=== PATIENT | male | born 1980 | race African-American/Black ===

== ENCOUNTER 2021-06-18 21:25 | Inpatient (IN) | payer BC ==
[2021-06-18] MEDS ORDERED: ACETAMINOPHEN 500 MG TAB ONE (23:09)
[2021-06-19] LABS: SARS-COV-2 RT PCR POSITIVE (NEGATIVE)
[2021-06-19 00:20] LABS: Absolute Lymphocytes (CBC) 1.1 K/uL (0.7-4.9); Basophils % 1.8 % (0-1.3); Hematocrit 45.4 % (39.6-49.0); Lymphocytes % 18.2 % (15.3-44.8); MPV 7.8 fL (7.6-11.3); RBC Red Blood Cell Count 5.82 M/uL (4.33-5.43)
[2021-06-19 00:24] LABS: Protime INR 1.32
[2021-06-19 00:32] LABS: ALT/SGPT 31 U/L (12-78); AST/SGOT 27 U/L (15-37); Albumin 3.2 g/dL (3.4-5.0); Alkaline Phosphatase 58 U/L (45-117); BUN Blood Urea Nitrogen 8 mg/dL (7-18); Bicarbonate 27 mmol/L (21-32); Bilirubin Direct 0.2 mg/dL (0-0.2); Bilirubin Total 0.6 mg/dL (0.2-1.0); Creatine Phosphokinase 144 U/L (39-308); Glucose Level 126 mg/dL (74-106); Lipase 83 U/L (73-393); Magnesium 2.1 mg/dL (1.8-2.4); Potassium 3.5 mmol/L (3.5-5.1); Protein, Total 8.2 g/dL (6.4-8.2); Sodium Level 138 mmol/L (136-145); Troponin (Emerg Dept Use Only) < 0.02 ng/mL (0.0-0.045)
[2021-06-19 00:38] LABS: CKMB Creatine Kinase MB < 1.0 ng/mL (1.0-3.6); NT PRO-BNP < 5 pg/mL (<125)
--- NOTE | 2021-06-19 01:10 | ER ---
Nurse's Notes [facility] Name: Arpit Moffett Age: 41 yrs Sex: Male : 1980 Arrival Date: 06/18/2021 Time: 21:36 Bed 6 Private MD: Diagnosis: Pneumonia due to SARS-associated coronavirus;Hypoxemia Presentation: 06/18 22:34 Chief complaint: Patient states: Pt stated he hasn't been feeling well for the past wg week. States he was exposed to someone with Covid last week. States he has had increased resp distress, non productive cough, fever and hasn't been sleeping. Did take a Covid test last which was negative. [facility] stated when they arrived on scene pt was satting at 88% and came up to 93% on 2L NC. Pt states he also hasn't been eating or drinking. Pt denies, N/V, dizziness, Abd Pain, CP. Coronavirus screen: Vaccine status: Patient reports being unvaccinated. Client denies travel out of the [place] in the last 14 days. cough unrelated to allergies, fever, Client presents with at least one sign or symptom that may indicate coronavirus-19. Standard/surgical mask placed on the client. The client indicates previous COVID test results are pending. Date of collection: June 12, 2021. Ebola Screen: Patient negative for fever greater than or equal to 101.5 degrees Fahrenheit, and additional compatible Ebola Virus Disease symptoms Patient denies exposure to infectious person. Patient denies travel to an Ebola-affected area in the 21 days before illness onset. No symptoms or risks identified at this time. Initial Sepsis Screen: Does the patient meet any 2 criteria? RR > 20 per min. Temp <36.0*C (96.8*F)) or > 38.3*C (100.9*F). HR > 90 bpm. Yes Does the patient have a suspected source of infection? Yes: Other: Resp. Risk Assessment: Do you want to hurt yourself or someone else? Patient reports no desire to harm self or others. Onset of symptoms was June 14, 2021. Care prior to arrival: Medication(s) given: Robitussin. 22:34 Method Of Arrival: EMS: [facility] 22:34 Acuity: DALI 3 wg Triage Assessment: 22:40 General: Appears comfortable, well groomed, well developed, well nourished, Behavior is wg calm, cooperative, appropriate for age. Pain: Complains of pain in Chest/cough. EENT: Reports. Neuro: No deficits noted. Cardiovascular: No deficits noted. Respiratory: Reports shortness of breath cough that is air hunger pain with cough pain with movement Breath sounds are diminished Onset: The symptoms/episode began/occurred Since Wednesday, the patient has moderate shortness of breath. GI: No deficits noted. : No deficits noted. Derm: No deficits noted. Musculoskeletal: No deficits noted. Historical: - Allergies: 22:44 No Known Allergies; wg - Immunization history:: Adult Immunizations unknown. - Social history:: Smoking status: unknown. - Family history:: not pertinent. - Hospitalizations: : No recent hospitalization is reported. Screenin:48 Abuse screen: Denies threats or abuse. Nutritional screening: No deficits noted. ea Tuberculosis screening: No symptoms or risk factors identified. Fall Risk None identified. Assessment: 06/19 00:00 General: Appears uncomfortable, Behavior is appropriate for age. Pain: Denies pain. ea Neuro: Level of Consciousness is awake, alert, obeys commands, Oriented to person, place, time. Cardiovascular: Patient's skin is warm and dry. Respiratory: Airway is patent Respiratory effort is even, unlabored, Respiratory pattern is regular, symmetrical. Derm: Skin is pink, warm \T\ dry. 01:43 Respiratory: Airway. kc4 01:53 Reassessment: Patient and/or family updated on plan of care and expected duration. Pain ea level reassessed. Patient is alert, oriented x 3, equal unlabored respirations, skin warm/dry/pink. Report called to receiving nurse, pt admitted to fourth floor. Pt left ED via wheelchair with O2 pt tolerating well. Vital Signs: 06/18 22:34 BP 127 / 92; Pulse 98; Resp 24; Temp 101.4; Pulse Ox 95% 3 lpm ; Weight 114.76 kg; wg Height 5 ft. 11 in. (180.34 cm); Pain 7/10; 06/19 01:42 BP 128 / 79; Pulse 88; Resp 18; Temp 99.0; Pulse Ox 94% 3 lpm ; Pain 0/10; kc4 06/18 22:34 Body Mass Index 35.29 (114.76 kg, 180.34 cm) ED Course: 06/18 21:36 Patient arrived in ED. bb 22:40 Triage completed. domitila 22:40 Arm band placed on right wrist. EKG completed in triage. Results shown to MD. wg 23:34 Ponce Haines MD is Attending Physician. rn 23:44 XRAY Chest Pa And Lat (2 Views) In Process Unspecified. EDMS 23:47 Le Lowe is Primary Nurse. kcArsen 06/19 00:03 Patient has correct armband on for positive identification. Bed in low position. ea 00:03 Inserted saline lock: 20 gauge in right antecubital area, using aseptic technique. ea Blood collected. 01:09 Leonel Blair MD is Hospitalizing Provider. rn 01:25 CORONAVIRUS Sent. kcArsen 01:46 No provider procedures requiring assistance completed. Patient admitted, IV remains in ea place. Administered Medications: 06/18 22:49 Drug: Tylenol 1000 mg Route: PO; wg 06/19 01:53 Follow up: Response: No adverse reaction ea Outcome: 01:09 Decision to Hospitalize by Provider. rn 01:48 Condition: stable ea 01:48 Instructed on the need for admit, Demonstrated understanding of instructions. 01:54 Patient left the ED. ea 01:54 Admitted to Med/surg via stretcher. ea Signatures: Dispatcher [employer] EDMS Katia He RN RN bb Nieto, Roman, MD MD rn Antunez, Elena, RN RN ea Gamba, Liam, RN wg Chuman, Kourtney kc4 Corrections: (The following items were deleted from the chart) 06/18 22:52 22:34 BP 127 / 92; Pulse 98bpm; Resp 24bpm; Pulse Ox 95% 3 lpm; Temp 100.4F; 114.76 kg; wg Height 5 ft. 11 in.; BMI: 35.2; Pain 7/10; wg
--- NOTE | 2021-06-19 01:10 | EDPHYS ---
Physician Documentation [facility] Name: Arpit Moffett Age: 41 yrs Sex: Male : 1980 Arrival Date: 06/18/2021 Time: 21:36 Bed 6 Private MD: ED Physician Ponce Haines HPI: 06/19 00:27 This 41 yrs old Black Male presents to ER via EMS with complaints of Shortness of rn breath. 00:27 The patient has shortness of breath at rest, with light activity. Onset: The rn symptoms/episode began/occurred 1 week(s) ago. Duration: The symptoms are intermittent. The patient's shortness of breath is aggravated by exertion, light activity, is alleviated by nothing. Associated signs and symptoms: Pertinent positives: non-productive cough, fever, Pertinent negatives: hemoptysis, loss of consciousness. Severity of symptoms: At their worst the symptoms were moderate in the emergency department the symptoms are unchanged. The patient has not experienced similar symptoms in the past. The patient has not recently seen a physician. Patient reports shortness of breath that has gotten worse over the last few days, cough started 1 week ago. Exposed to somebody with Covid. Reports congestion and generalized weakness and fatigue. Has not lost taste or smell. No chronic medical problems other than diabetes which he takes Metformin. Reports fever and chills.. Historical: - Allergies: 06/18 22:44 No Known Allergies; wg - Immunization history:: Adult Immunizations unknown. - Social history:: Smoking status: unknown. - Family history:: not pertinent. - Hospitalizations: : No recent hospitalization is reported. ROS: 06/19 00:27 Constitutional: Positive for fever and chills Eyes: Negative for injury, pain, redness, rn and discharge, ENT: Negative for injury, pain, and discharge, Neck: Negative for injury, pain, and swelling, Cardiovascular: Negative for chest pain, palpitations, and edema, Respiratory: Positive for cough and shortness of breath Abdomen/GI: Negative for abdominal pain, nausea, vomiting Back: Negative for injury and pain, : Negative for injury, bleeding, discharge, and swelling, MS/Extremity: Negative for injury and deformity, Skin: Negative for injury, rash, and discoloration, Neuro: Negative for numbness, tingling, and seizure. Exam: 00:27 Constitutional: This is a well developed, well nourished patient who is awake, alert, rn mild tachypnea Head/Face: Normocephalic, atraumatic. Eyes: Pupils equal round and reactive to light, extra-ocular motions intact. Lids and lashes normal. Conjunctiva and sclera are non-icteric and not injected. Cornea within normal limits. Periorbital areas with no swelling, redness, or edema. ENT: No stridor Cardiovascular: Tachycardic, regular. No pulse deficits. Respiratory: Mild tachypnea, no retractions Abdomen/GI: Soft, nontender Skin: Warm, dry MS/ Extremity: Pulses equal, no cyanosis. Neuro: Awake and alert, GCS 15 Vital Signs: 06/18 22:34 BP 127 / 92; Pulse 98; Resp 24; Temp 101.4; Pulse Ox 95% 3 lpm ; Weight 114.76 kg; wg Height 5 ft. 11 in. (180.34 cm); Pain 7/10; 06/19 01:42 BP 128 / 79; Pulse 88; Resp 18; Temp 99.0; Pulse Ox 94% 3 lpm ; Pain 0/10; kc4 06/18 22:34 Body Mass Index 35.29 (114.76 kg, 180.34 cm) wg MDM: 06/18 23:34 Patient medically screened. rn 06/19 01:05 Differential diagnosis: Bronchitis Myocardial Infarction pneumonia, Pneumothorax rn pulmonary edema, reactive airway disease, Sepsis. Antibiotic administration: Not indicated. Data reviewed: vital signs, nurses notes, lab test result(s), EKG, radiologic studies, plain films, and as a result, I will admit patient. Data interpreted: patient monitor: rate is 98 beats/min, rhythm is normal sinus rhythm, regular, with no ectopy, Interpretation: normal rate, normal rhythm, Pulse oximetry: on room air is 88 %. Interpretation: hypoxia. Plan: O2 by NC applied. Test interpretation: by ED physician or midlevel provider: ECG, plain radiologic studies, X-ray with bilateral infiltrates consistent with Covid pneumonia. Counseling: I had a detailed discussion with the patient and/or guardian regarding: the historical points, exam findings, and any diagnostic results supporting the discharge/admit diagnosis, lab results, radiology results, the need for outpatient follow up, to return to the emergency department if symptoms worsen or persist or if there are any questions or concerns that arise at home. 01:08 Response to treatment: the patient's symptoms have mildly improved after treatment. furniture delivery driver orders: after a detailed discussion of the patient's condition and case, the admit orders are written by me. ED course: Patient Covid positive, Covid pneumonia on x-ray, hypoxic, will admit to hospitalist service for further care.. 06/18 22:51 Order name: BMP 06/18 22:51 Order name: Blood Culture Adult (2) 06/18 22:51 Order name: CBC with Diff 06/18 22:51 Order name: CPK; Complete Time: 01: 06/18 22:51 Order name: Ckmb; Complete Time: : 06/18 22:51 Order name: D-Dimer; Complete Time: 01: 06/18 22:51 Order name: Hepatic Function; Complete Time: 01: 06/18 22:51 Order name: Lipase; Complete Time: 01: 06/18 22:51 Order name: Magnesium; Complete Time: 01: 06/18 22:51 Order name: NT PRO-BNP; Complete Time: 01: 06/18 22:51 Order name: PT-INR; Complete Time: : 06/18 22:51 Order name: Ptt, Activated; Complete Time: : 06/18 22:51 Order name: Troponin (emerg Dept Use Only); Complete Time: 01:04 06/18 22:51 Order name: XRAY Chest Pa And Lat (2 Views) 06/18 22:51 Order name: EKG; Complete Time: 22:52 06/18 22:51 Order name: Cardiac monitoring; Complete Time: 00:02 06/18 22:51 Order name: EKG - Nurse/Tech; Complete Time: : 06/18 22:51 Order name: IV Saline Lock; Complete Time: 00:02 06/18 22:51 Order name: Labs collected and sent; Complete Time: 00:02 06/18 22:51 Order name: O2 Per Protocol; Complete Time: 00:02 06/18 22:51 Order name: O2 Sat Monitoring; Complete Time: 00:02 06/18 22:51 Order name: CORONAVIRUS EDMS 06/18 22:51 Order name: Basic Metabolic Panel; Complete Time: 01:04 EDMS 06/18 22:51 Order name: Blood Culture EDSC 06/18 22:51 Order name: CBC with Automated Diff; Complete Time: 01:04 EDMS 06/19 00:01 Order name: COVID-19/FLU A+B; Complete Time: 01:04 EDMS 06/19 01:13 Order name: CONS Physician Consult EDSC 06/19 01:14 Order name: Chest For Pe Angio EDMS Administered Medications: 06/18 22:49 Drug: Tylenol 1000 mg Route: PO; wg 06/19 01:53 Follow up: Response: No adverse reaction ea Disposition Summary: 06/19/21 01:09 Hospitalization Ordered Hospitalization Status: Inpatient Admission rn Provider: Leonel Blair rn Location: Telemetry/MedSurg (Inpatient) rn Condition: Stable rn Problem: new rn Symptoms: have improved rn Bed/Room Type: Standard rn Room Assignment: 419(06/19/21 01:36) tl1 Diagnosis - Pneumonia due to SARS-associated coronavirus rn - Hypoxemia rn Forms: - Medication Reconciliation Form rn - SBAR form rn Signatures: Dispatcher [employer] [facility] Ponce Haines MD MD rn Lasagna, Tonya RN RN tl1 Kellee Brown RN RN ea Gamba, Liam, RN wg Corrections: (The following items were deleted from the chart) 01:36 01:09 rn tl1
--- NOTE | 2021-06-19 01:53 | P.HP ---
Certification for Inpatient Patient admitted to: Inpatient With expected LOS: <2 Midnights Patient will require the following post-hospital care: None Practitioner: I am a practitioner with admitting privileges, knowledge of patient current condition, hospital course, and medical plan of care. Services: Services provided to patient in accordance with Admission requirements found in Title 42 Section 412.3 of the Code of Federal Regulations Patient History Date of Service: 06/19/21 Reason for admission: covid pneumonia History of Present Illness: Mr. Moffett is a 41 yo M with DM who presents with SOB and cough since Wednesday, and COVID+ diagnosis today. He was found to be 88% on RA, stable on 2L NC. He reports fever, anorexia, malaise, wheezing, headache and diarrhea. Denies nausea, vomiting, pleuritic pain. Fluid intake has been good. Ddimer 1096. CTPE pending. - Past Medical/Surgical History Diabetic: Yes -: DM Past Surgical History: Patient denies surgical history - Family History Father -: Diabetes - Social History Smoking Status: Never smoker Alcohol use: No CD- Drugs: No Caffeine use: Yes Place of Residence: Home Review of Systems 10-point ROS is otherwise unremarkable General: Fever, Chills, Sweats, Malaise Respiratory: Cough, Shortness of Breath, Wheezing Gastrointestinal: Diarrhea Physical Examination - Physical Exam General: Alert, In no apparent distress HEENT: Atraumatic, PERRLA, Mucous membr. moist/pink, EOMI, Sclerae nonicteric Neck: Supple, 2+ carotid pulse no bruit, No LAD, Without JVD or thyroid abnormality Respiratory: Normal air movement, Rhonchi/gurgles Cardiovascular: Regular rate/rhythm, Normal S1 S2 Gastrointestinal: Normal bowel sounds, No tenderness Musculoskeletal: No tenderness Integumentary: No rashes Neurological: Normal gait, Normal speech, Normal strength at 5/5 x4 extr, Normal tone, Normal affect Lymphatics: No axilla or inguinal lymphadenopathy - Studies Laboratory Data (last 24 hrs) 06/18/21 23:58: PT 15.2 H, INR 1.32, APTT 31.2 06/18/21 23:58: WBC 6.30, Hgb 14.5, Hct 45.4, Plt Count 266 06/18/21 23:58: Sodium 138, Potassium 3.5, BUN 8, Creatinine 1.02, Glucose 126 H, Magnesium 2.1, Total Bilirubin 0.6, AST 27, ALT 31, Alkaline Phosphatase 58, Lipase 83 Assessment and Plan - Problems (Diagnosis) (1) Pneumonia due to COVID-19 virus Current Visit: Yes Status: Acute (2) Diabetes Current Visit: Yes Status: Chronic Qualifiers: Diabetes mellitus type: type 2 Diabetes mellitus bed bug exterminator insulin use: without bed bug exterminator use Diabetes mellitus complication status: without complication Qualified Code(s): E11.9 - Type 2 diabetes mellitus without complications - Plan pulm and respiratory therapy consulted follow up CT scan continue IV steroids, covid supplements, ivermectin daily CRP, ferritin, procal sliding scale insulin and accuchecks DVT ppx Discharge Plan: Home Plan to discharge in: 48 Hours - Advance Directives Does patient have a Living Will: No Does patient have a Durable POA for Healthcare: No - Code Status/Comfort Care Code Status Assessed: Yes (full code) Critical Care: No Time Spent Managing Pts Care (In Minutes): 70
[2021-06-19] MEDS ORDERED: MORPHINE 2 MG/ML SYR IV PRN (02:44)
[2021-06-19] MEDS ORDERED: ACETAMINOPHEN 500 MG TAB PO PRN (02:44)
[2021-06-19] MEDS ORDERED: ONDANSETRON 4 MG/2 ML VIAL IV PRN (02:44)
[2021-06-19 03:01] VITALS: BMI 35.2
[2021-06-19] MEDS: METHYLPREDNISOLONE 125 MG INJ IV SCH ×3 (03:21→19:31)
[2021-06-19] MEDS: MELATONIN 5 MG TABLET PO PRN ×2 (03:22→19:31)
[2021-06-19] MEDS: BENZONATATE 100 MG CAP PO PRN ×3 (03:22→19:30)
[2021-06-19] MEDS: INSULIN -REGULAR HUMAN 50 UNIT/0.5 ML ML SQ SCH ×4 (07:30→19:29)
--- NOTE | 2021-06-19 07:45 | RAD REPORT ---
EXAM DESCRIPTION: RAD - Chest Pa And Lat (2 Views) - 06/18/2021 11:44 pm CLINICAL HISTORY: Fever;Cough;Dyspnea COMPARISON: None TECHNIQUE: Frontal and lateral views of the chest were obtained. FINDINGS: The lungs are underinflated. Airspace opacities are present primarily in a peripheral dist ribution. Pattern is nonspecific but commonly seen in COVID-19 pneumonia. That would be the primary d ifferential diagnosis in the current clinical environment. Non COVID viral pneumonia and organizing p neumonia can give this pattern. Heart size is normal and central vasculature is within normal limits. No pleural effusion or pneu mothorax seen. No acute bony finding noted. No aortic abnormality. IMPRESSION: Bilateral peripheral airspace opacification. COVID testing findings are not detailed in history. In the current clinical environment, this lung pa ttern is most likely COVID-19 pneumonia.
[2021-06-19] MEDS: ASCORBIC ACID 500 MG TABLET PO SCH ×4 (08:37→19:31)
[2021-06-19] MEDS: ASPIRIN EC 81 MG TAB PO SCH (08:37)
[2021-06-19] MEDS: ZINC SULFATE 220 MG CAP PO SCH (08:37)
[2021-06-19] MEDS: IVERMECTIN 3 MG TABLET PO SCH (08:38)
[2021-06-19] MEDS: FAMOTIDINE 20 MG TAB PO SCH ×2 (08:38→19:30)
[2021-06-19] MEDS: THIAMINE HCL 100 MG TABLET PO SCH (08:38)
[2021-06-19] MEDS: VITAMIN D 1000 UNIT TAB PO SCH (08:38)
[2021-06-19] MEDS ORDERED: POTASSIUM CL SA 10 MEQ TAB PO ONE (09:00)
--- NOTE | 2021-06-19 12:22 | RAD REPORT ---
EXAM DESCRIPTION: CT - Chest For Pe Angio - 06/19/2021 2:12 am CLINICAL HISTORY: The patient is 41 years old and is Male; covid pneumonia TECHNIQUE: Axial computed tomographic angiography images of the chest with intravenous contrast. S agittal and coronal reformatted images were created and reviewed. This CT exam was performed using one or more of the following dose reduction techniques: automated exposure control, adjustment of t he mA and/or kV according to patient size, and/or use of iterative reconstruction technique. MIP reconstructed images were created and reviewed. COMPARISON: No relevant prior studies available. FINDINGS: PULMONARY ARTERIES: There are no obvious filling defects identified within the pulmonary arteries to suggest pulmonary embolism. AORTA: No acute findings. No thoracic aortic aneurysm. LUNGS: Extensive scattered groundglass opacities are present throughout the lungs. PLEURAL SPACE: Unremarkable. No significant effusion. No pneumothorax. HEART: Unremarkable. No cardiomegaly. No significant pericardial effusion. No evidence of RV dysfunction. BONES/JOINTS: No acute fracture. No dislocation. SOFT TISSUES: Unremarkable. LYMPH NODES: Unremarkable. No enlarged lymph nodes. LIVER: The liver is enlarged and diffusely fatty. IMPRESSION: 1. Extensive groundglass infiltrates. Commonly reported imaging features of (COVID-1 9 or viral) pneumonia are present. Other processes such as influenza pneumonia and organizing pneumon ia, as can be seen with drug toxicity and connective tissue disease, can cause a similar imaging meme alma. [id number] 2. No evidence of pulmonary embolism. Electronically signed by: Sheeba Cerna MD 06/19/2021 2:06 AM CDT Due to temporary technical issues with the PACS/Fluency reporting system, reports are being signed by the in house radiologist without review as a courtesy to ensure prompt reporting. The interpreting r adiologist is fully responsible for the content of the report.
[2021-06-19] MEDS ORDERED: RIVAROXABAN 10 MG TABLET PO SCH (17:00)
--- NOTE | 2021-06-19 17:16 | P.PN ---
Date of Service: 06/19/21 Patient seen and examined. He is currently tolerating 2 L oxygen by nasal cannula. Continue IV steroid. Vitamins and zinc supplementation Check CRP, ferritin and pro calcitonin. Pharmacist to evaluate for Remdesivir therapy.
[2021-06-19] MEDS ORDERED: REMDESIVIR (EUA) 200 MG in NA CHLORIDE 0.9% 250 ML IV ONE (19:00)
[2021-06-20 05:29] LABS: Basophils % 0.5 % (0-1.3); Hematocrit 45.5 % (39.6-49.0); Lymphocytes % 10.1 % (15.3-44.8); MPV 7.9 fL (7.6-11.3); RBC Red Blood Cell Count 5.81 M/uL (4.33-5.43)
[2021-06-20 05:57] LABS: ALT/SGPT 37 U/L (12-78); AST/SGOT 22 U/L (15-37); Albumin 2.9 g/dL (3.4-5.0); Alkaline Phosphatase 62 U/L (45-117); BUN Blood Urea Nitrogen 11 mg/dL (7-18); Bicarbonate 26 mmol/L (21-32); Bilirubin Direct 0.1 mg/dL (0-0.2); Bilirubin Total 0.5 mg/dL (0.2-1.0); Ferritin 657.3 ng/mL (26-388); Glucose Level 176 mg/dL (74-106); HDL Cholesterol 34 mg/dL (40-60); LDL Cholesterol, Calculated 134 (<130); Magnesium 2.2 mg/dL (1.8-2.4); Phosphorus 2.6 mg/dL (2.5-4.9); Potassium 3.9 mmol/L (3.5-5.1); Protein, Total 7.8 g/dL (6.4-8.2); Sodium Level 138 mmol/L (136-145)
[2021-06-20] MEDS: INSULIN -REGULAR HUMAN 50 UNIT/0.5 ML ML SQ SCH ×4 (07:30→20:41)
[2021-06-20] MEDS: VITAMIN D 1000 UNIT TAB PO SCH (08:38)
[2021-06-20] MEDS: FAMOTIDINE 20 MG TAB PO SCH ×2 (08:38→19:26)
[2021-06-20] MEDS: ASCORBIC ACID 500 MG TABLET PO SCH ×4 (08:38→19:27)
[2021-06-20] MEDS: THIAMINE HCL 100 MG TABLET PO SCH (08:38)
[2021-06-20] MEDS: ASPIRIN EC 81 MG TAB PO SCH (08:38)
[2021-06-20] MEDS: ZINC SULFATE 220 MG CAP PO SCH (08:38)
[2021-06-20] MEDS: METHYLPREDNISOLONE 125 MG INJ IV SCH ×2 (08:39→19:26)
[2021-06-20] MEDS ORDERED: POTASSIUM CL SA 10 MEQ TAB PO ONE (09:00)
[2021-06-20] MEDS: REMDESIVIR (EUA) 100 MG in NA CHLORIDE 0.9% 250 ML IV SCH (09:04)
[2021-06-20] MEDS: BENZONATATE 100 MG CAP PO PRN (12:20)
--- NOTE | 2021-06-20 12:55 | P.CNS ---
Date of Consult: 06/20/21 Reason for Consult: Coronavirus pneumonia Chief Complaint: covid pneumonia History of Present Illness: Patient is 41 years of age with diabetes admitted with back coronavirus pneumonia ported fatigue wheezing shortness of breath nausea vomiting currently stable Allergies No Known Drug Allergies Allergy (Verified 06/19/21 02:43) Rash Home Medications: Metformin ER [Glucophage ER*] 500 mg PO DAILY 06/19/21 - Past Medical/Surgical History Diabetic: Yes -: DM - Family History Father Medical History: Diabetes - Social History Smoking Status: Unknown if ever smoked Alcohol use: No CD- Drugs: No Caffeine use: Yes Place of Residence: Home Review of Systems General: Weakness Respiratory: Shortness of Breath Physical Examination Temp Pulse Resp BP Pulse Ox 97.8 F 88 22 H 133/87 89 L 06/20/21 08:00 06/20/21 08:00 06/20/21 08:00 06/20/21 08:00 06/20/21 08:00 General: Alert, Oriented x2, Cooperative - Problems (1) Pneumonia due to COVID-19 virus Current Visit: Yes Status: Acute Plan: Patient is 41 years of age admitted with coronavirus pneumonia he is only on 3 L of nasal cannula oxygen if he gets worse we will start him on Barcitinib currently he is on remdesivir and steroids continues to remain stable possible discharge after completion of remdesivir dose
[2021-06-20] MEDS ORDERED: HYDROCODONE/CHLORPHEN 5 ML/OSYR PO PRN (16:58)
--- NOTE | 2021-06-20 16:58 | P.PN ---
Subjective Date of Service: 06/20/21 Chief Complaint: covid pneumonia Patient's oxygen saturation is getting worse by the ED. He reports intermittent cough, especially with deep breathing. Physical Examination - Vital Signs Temperature: 97.3 F Blood Pressure: 141/77 Pulse: 76 Respirations: 20 Pulse Ox (%): 89 - Physical Exam General: Alert, In no apparent distress, Oriented x3 Neck: JVD distended Respiratory: Other (Nonlabored breathing) Cardiovascular: Regular rate/rhythm, Normal S1 S2 Gastrointestinal: Soft and benign, Non-distended Musculoskeletal: No swelling Integumentary: No rashes Neurological: Normal strength at 5/5 x4 extr Assessment And Plan - Current Problems (Diagnosis) (1) Acute respiratory failure with hypoxia Current Visit: Yes Status: Acute (2) Pneumonia due to COVID-19 virus Current Visit: Yes Status: Acute (3) Diabetes Current Visit: Yes Status: Chronic Qualifiers: Diabetes mellitus type: type 2 Diabetes mellitus snf insulin use: without snf use Diabetes mellitus complication status: without complication Qualified Code(s): E11.9 - Type 2 diabetes mellitus without complications - Plan Continue IV steroid. Vitamins and zinc supplementation. Titrate oxygen Antitussives as needed. Watch for steroid induced hyperglycemia. Manage blood sugar with insulin sliding scale.
[2021-06-20] MEDS: RIVAROXABAN 20 MG TABLET PO SCH (17:20)
[2021-06-20] MEDS: MELATONIN 5 MG TABLET PO PRN (19:27)
[2021-06-21 05:45] LABS: Absolute Lymphocytes (CBC) 1.2 K/uL (0.7-4.9); Basophils % 0.4 % (0-1.3); Hematocrit 43.7 % (39.6-49.0); Lymphocytes % 7.9 % (15.3-44.8); MPV 7.8 fL (7.6-11.3); RBC Red Blood Cell Count 5.57 M/uL (4.33-5.43)
[2021-06-21 06:17] LABS: ALT/SGPT 56 U/L (12-78); AST/SGOT 30 U/L (15-37); Albumin 2.8 g/dL (3.4-5.0); Alkaline Phosphatase 76 U/L (45-117); BUN Blood Urea Nitrogen 16 mg/dL (7-18); Bicarbonate 25 mmol/L (21-32); Bilirubin Direct 0.1 mg/dL (0-0.2); Bilirubin Total 0.3 mg/dL (0.2-1.0); Glucose Level 262 mg/dL (74-106); Potassium 4.2 mmol/L (3.5-5.1); Protein, Total 7.3 g/dL (6.4-8.2); Sodium Level 136 mmol/L (136-145)
[2021-06-21 07:07] LABS: Blood Morphology Comment NOT SEEN (NOT SEEN); Platelet Estimate ADEQ; White Blood Cell Scan OK (OK)
[2021-06-21] MEDS: REMDESIVIR (EUA) 100 MG in NA CHLORIDE 0.9% 250 ML IV SCH (09:56)
[2021-06-21] MEDS: IVERMECTIN 3 MG TABLET PO SCH (09:56)
[2021-06-21] MEDS: FAMOTIDINE 20 MG TAB PO SCH (09:57)
[2021-06-21] MEDS: ASPIRIN EC 81 MG TAB PO SCH (09:57)
[2021-06-21] MEDS: VITAMIN D 1000 UNIT TAB PO SCH (09:57)
[2021-06-21] MEDS: ZINC SULFATE 220 MG CAP PO SCH (09:57)
[2021-06-21] MEDS: METHYLPREDNISOLONE 125 MG INJ IV SCH (09:57)
[2021-06-21] MEDS: THIAMINE HCL 100 MG TABLET PO SCH (09:57)
[2021-06-21] MEDS: ASCORBIC ACID 500 MG TABLET PO SCH ×3 (09:57→16:48)
[2021-06-21] MEDS: INSULIN -REGULAR HUMAN 50 UNIT/0.5 ML ML SQ SCH ×3 (09:58→16:49)
[2021-06-21 12:15] VITALS: O2SAT 92
[2021-06-21 12:16] VITALS: TEMP 97.6
[2021-06-21 16:13] VITALS: BP 129/74
--- NOTE | 2021-06-21 16:40 | P.DS ---
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 He tested positive for COVID in the ED. He was found to be 88% on RA, put on 2L NC. Her reported pleuritic pain. Ddimer 1096. CTPE no PE but extensive bilateral infiltrates. Patient hospitalized for further management. Hospital Course: Patient admitted to the medical floor, started on IV Solu-Medrol, put on vitamin-D and zinc supplementation. He was stable on 2 L of oxygen by nasal cannula. Patient also treated with Remdesivir. Seen by pulmonary-Dr. Gale who assisted with management. Patient has been stable on 2 L oxygen by nasal cannula and deemed stable for discharge. He is informed to return to the ED should he require more oxygen or feel more short of breath. Vital Signs/Physical Exam: Temp Pulse Resp BP Pulse Ox 97.6 F 79 18 129/74 92 06/21/21 16:00 06/21/21 16:00 06/21/21 16:00 06/21/21 16:00 06/21/21 16:00 General: Alert, In no apparent distress, Oriented x3 HEENT: Mucous membr. moist/pink Neck: JVD not distended Respiratory: Other (Nonlabored breathing) Cardiovascular: No edema, Regular rate/rhythm, Normal S1 S2 Gastrointestinal: Soft and benign, Non-distended Musculoskeletal: No swelling Integumentary: No rashes Neurological: Normal strength at 5/5 x4 extr Laboratory Data at Discharge: WBC 15.30 K/uL (4.3-10.9) H D 06/21/21 04:44 Hgb 14.0 g/dL (13.6-17.9) 06/21/21 04:44 Hct 43.7 % (39.6-49.0) 06/21/21 04:44 Plt Count 402 K/uL (152-406) 06/21/21 04:44 PT 15.2 SECONDS (9.5-12.5) H 06/18/21 23:58 INR 1.32 06/18/21 23:58 APTT 31.2 SECONDS (24.3-36.9) 06/18/21 23:58 Sodium 136 mmol/L (136-145) 06/21/21 04:44 Potassium 4.2 mmol/L (3.5-5.1) 06/21/21 04:44 BUN 16 mg/dL (7-18) 06/21/21 04:44 Creatinine 0.87 mg/dL (0.55-1.3) 06/21/21 04:44 Glucose 262 mg/dL (74-106) H 06/21/21 04:44 Phosphorus 2.6 mg/dL (2.5-4.9) 06/20/21 04:53 Magnesium 2.2 mg/dL (1.8-2.4) 06/20/21 04:53 Total Bilirubin 0.3 mg/dL (0.2-1.0) 06/21/21 04:44 AST 30 U/L (15-37) 06/21/21 04:44 ALT 56 U/L (12-78) 06/21/21 04:44 Alkaline Phosphatase 76 U/L (45-117) 06/21/21 04:44 Triglycerides 123 mg/dL (<150) 06/20/21 04:53 Cholesterol 193 mg/dL (<200) 06/20/21 04:53 HDL Cholesterol 34 mg/dL (40-60) L 06/20/21 04:53 Cholesterol/HDL Ratio 5.68 06/20/21 04:53 Lipase 83 U/L (73-393) 06/18/21 23:58 Home Medications: Metformin ER [Glucophage ER*] 500 mg PO DAILY 06/19/21 Ascorbic Acid [Vitamin C*] 500 mg PO QID #120 tablet 06/21/21 Aspirin [Aspirin EC 81 MG] 162 mg PO DAILY #60 tablet. 06/21/21 Benzonatate [Tessalon Perle*] 100 mg PO TID PRN #30 cap 09/11/21 Cholecalciferol (Vitamin D3) [Vitamin D 1000 Iu Tab*] 4,000 unit PO DAILY #120 tab 06/21/21 Famotidine [Pepcid*] 20 mg PO BID #60 tab 06/21/21 Hydrocodone/Chlorphen Polis [Tussionex Oral Susp*] 5 ml PO BID PRN #115 ml 06/21/21 Thiamine HCl [Vitamin B-1*] 200 mg PO DAILY #30 tablet 06/21/21 Zinc Sulfate [Zinc Sulfate*] 220 mg PO DAILY #30 cap 06/21/21 glipiZIDE [Glucotrol Xl] 2.5 mg PO DAILY #30 tab.er.24 06/21/21 predniSONE [Deltasone] 20 mg PO BID #21 tab 06/21/21 New Medications: Aspirin [Aspirin EC 81 MG] 162 mg PO DAILY #60 tablet. glipiZIDE [Glucotrol Xl] 2.5 mg PO DAILY #30 tab.er.24 Famotidine [Pepcid*] 20 mg PO BID #60 tab predniSONE [Deltasone] 20 mg PO BID #21 tab Benzonatate [Tessalon Perle*] 100 mg PO TID PRN #30 cap PRN Reason: Cough Hydrocodone/Chlorphen Polis [Tussionex Oral Susp*] 5 ml PO BID PRN #115 ml PRN Reason: Cough Thiamine HCl [Vitamin B-1*] 200 mg PO DAILY #30 tablet Ascorbic Acid [Vitamin C*] 500 mg PO QID #120 tablet Cholecalciferol (Vitamin D3) [Vitamin D 1000 Iu Tab*] 4,000 unit PO DAILY #120 tab Zinc Sulfate [Zinc Sulfate*] 220 mg PO DAILY #30 cap Physician Discharge Instructions: Please return to the emergency department if you feel more short of breath and have to increase your oxygen. Diet: ADA Activity: Ad miryam Followup: NONE,NONE [Primary Care Provider] - Time spent managing pt's care (in minutes): 38
[2021-06-21] MEDS: RIVAROXABAN 20 MG TABLET PO SCH (16:48)
--- NOTE | 2021-06-21 17:15 | P.PN ---
Subjective Date of Service: 06/21/21 Chief Complaint: covid pneumonia Patient is stable on 2 L of oxygen by nasal cannula. He states he feels better today. . Physical Examination - Vital Signs Temperature: 97.6 F Blood Pressure: 129/74 Pulse: 79 Respirations: 18 Pulse Ox (%): 92 - Physical Exam General: Alert, In no apparent distress, Oriented x3 HEENT: Mucous membr. 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 Vitamins and zinc supplementation. On Remdesivir. Titrate oxygen Antitussives as needed. Watch for steroid induced hyperglycemia. Manage blood sugar with insulin sliding scale.
== END 2021-06-21 18:27 | disposition home or self-care (01) | DRG 177 ==
LOC: ER 21:25 → ERHOLD 06-19 01:16 → 4TH 06-19 01:53
PROVIDERS: ADMIT Internal Medicine; ATTEND Internal Medicine
DX: U07.1 COVID-19 (principal); J12.82 Pneumonia due to coronavirus disease 2019; J96.01 Acute respiratory failure with hypoxia; E11.9 Type 2 diabetes mellitus without complications
CPT/HCPCS: 0240U; 36415; 71046; 71275; 80048; 80053; 80061; 80076; 82248; 82550; 82553; 82728; 82947; 83690; 83735; 83880; 84100; 84145; 84484; 85025; 85379; 85610; 85730; 86140; 87040; 87205; 93005; 94760; 99285; J2930; J7050; Q9967